=== PATIENT | female | born 1955 | race Caucasian/White ===

== ENCOUNTER → 2024-01-29 | Outpatient (CLI) | payer MEDICARE, SELFPAY ==
[2024-01-29 12:25] LABS: Absolute Lymphocyte Count 1.56 X10^3/uL (0.83-4.51); Absolute Neutrophil Count 4.1 X10^3/uL (2.0-7.7); Basophil# 0.05 X10^3/uL; Basophil% 0.8 % (0-1); Hematocrit 40.1 % (37-47); Hemoglobin 13.6 g/dL (12.0-15.0); Lymphocyte # 1.56 X10^3/ul (0.83-4.51); Lymphocyte % 23.8 % (19-41); Mean Corp Hgb Conc 33.9 g/dL (32-36); Mean Corpuscular Hgb 32.6 pg (27.0-32.0); Mean Corpuscular Volume 96.2 fL (81-99); Mean Platelet Vol. 9.2 fl (6.2-12.0); Monocyte# 0.68 X10^3/uL; Monocyte% 10.4 % (0-10); NRBC Flagged by Analyzer 0 % (0-5); Neutrophil # 4.05 X10^3/uL (2.7-7.7); Neutrophil % 61.7 % (47-70); Platelet Count 337 K/mm3 (150-450); RBC Distribution Width SD 42.4 fl (35.1-43.9); Red Blood Count 4.17 M/mm3 (4.2-5.4); White Blood Count 6.6 K/mm3 (4.4-11.0)
[2024-01-29 13:12] LABS: Vitamin D,25 Hydroxy 20.7 ng/mL
[2024-01-30 02:03] LABS: ALB/GLOB Ratio 1.1 RATIO (0.9-2.4); AST(SGOT) 15 U/L (15-37); Alanine Aminotransfer ALT/SGPT 17 U/L (13-56); Albumin, Serum 4.1 g/dL (3.2-5.0); Alkaline Phosphatase 98 U/L (45-117); Anion Gap 10 (5-15); BUN 12 mg/dL (7-18); BUN/Creat Ratio 17.1 RATIO (10-20); Calcium,Total 9.6 mg/dL (8.5-10.1); Chloride 101 mmol/L (98-107); Cholesterol 302 mg/dL (200); EST Glomerular Filtration Rate 88 mL/min (>60); Est Glom Filt Rate - Afr Amer 106 mL/min (>60); Globulin 3.9 g/dL (2.2-4.2); Glucose 111 mg/dL (74-106); High Density Lipoprotein 90 mg/dL; Potassium 4.2 mmol/L (3.5-5.1); Sodium Level 136 mmol/L (136-145); Triglycerides 66 mg/dL; Very Low Density Lipoprotein 13 mg/dL (5-40)
== END | disposition home or self-care (01) ==
LOC: MFPLAB 10:50
PROVIDERS: PCP Family Medicine; Visit Provider Family Medicine
DX: Z00.00 Encounter for general adult medical examination without abnormal findings (principal); Z12.11 Encounter for screening for malignant neoplasm of colon; Z13.1 Encounter for screening for diabetes mellitus; Z78.0 Asymptomatic menopausal state; E78.5 Hyperlipidemia, unspecified
CPT/HCPCS: 36415; 80053; 80061; 82306; 85025

== ENCOUNTER → 2024-02-17 | Outpatient (CLI) | payer MEDICARE, OTHER, SELFPAY ==
--- NOTE | 2024-02-17 09:56 | BD_ITS ---
STUDY: DUAL ENERGY X-RAY ABSORPTIOMETRY / DXA REASON FOR EXAM: Female, 68 years old. 627.8Menopausal postmenopausal BONE DENSITY REASON FOR EXAM TECHNIQUE: Bone Mineral Density (BMD) measurements of lumbar spine and bilateral hips were obtained. COMPARISON: None. FINDINGS: Lumbar Spine (L1-L4): g/cm2 (0.874) / T-score (-1.6) / Z-score (0.5) Findings are suggestive of osteopenia with a moderate fracture risk. Left Femur Total: g/cm2 (0.844) / T-score (-0.8) / Z-score (0.7) Left Femoral Neck: g/cm2 (0.615) / T-score (-2.1) / Z-score (-0.3) Right Femur Total: g/cm2 (0.848) / T-score (-0.8) / Z-score (0.7) Right Femoral Neck: g/cm2 (0.623) / T-score (-2.0) / Z-score (-0.2) BD/Dexa Bone Density Study IMPRESSION: The patient is considered osteopenic as outlined below according to World Patrick Organization (WHO) criteria with a high fracture risk. Reference Information: The T-score is the number of standard deviations above or below the standard which is normal for young adults at their peak bone mineral density. The World Health Organization (WHO) interprets the T-scores as follows: Above -1 Normal bone density Between -1 and -2.5 Osteopenia Equal to / or below -2.5 Osteoporosis As a practical clinical guideline, osteopenia may be graded as follows: Mild -1 through -1.5 Moderate -1.6 through -2.0 Severe -2.1 through -2.4 The Z-score is the number of standard deviations above or below age-matched controls. A Z-score of less than -1.5 would be considered abnormal. References: 1. NIH Osteoporosis and Related Bone Diseases www osteo.org 2. International Society for Clinical Densitometry www iscd.org 3. National Osteoporosis Foundation www nof.org Electronically Signed: Philip Abdalla MD at 10:59 EDT ,
== END | disposition home or self-care (01) ==
LOC: OPBD 09:53
PROVIDERS: PCP Family Medicine; Referring Provider Family Medicine; Visit Provider Family Medicine
DX: Z78.0 Asymptomatic menopausal state (principal)
CPT/HCPCS: 77080

== ENCOUNTER → 2024-03-23 | Outpatient (CLI) | payer MEDICARE, OTHER, SELFPAY ==
--- NOTE | 2024-03-23 07:11 | MRI_ITS ---
STUDY: MRI LOWER EXTREMITY RIGHT TIBIA/FIBULA WITH AND WITHOUT CONTRAST REASON FOR EXAM: Female, 69 years old. Nodule of right saucedo. TECHNIQUE: Standardized fat and water weighted pulse sequences were obtained in all 3 orthogonal planes, post contrast administration. IV 15 mL Clariscan was administered for the contrast portion of the examination. COMPARISON: None. FINDINGS: A skin marker was placed along the anteromedial aspect of the right knee region at the site of clinical concern. Subjacent to the skin marker in the subdermal subcutaneous fat, there is a well-defined intermediate T1 and increased STIR signal nodular lesion measuring 0.8 cm AP, 1.1 cm transverse, and 1.0 cm craniocaudad. There is internal enhancement of the lesion following IV contrast administration. There is no surrounding soft tissue edema. Normal tibia and fibula, without a periosteal, cortical or cancellous marrow abnormality. Normal anterior, lateral, and posterior calf compartments, with normal muscles, crural fascia and intermuscular septa. MRI/Lower Ext No Joint W/WO Cont IMPRESSION: Nonspecific 0.8 x 1.1 x 1.0 cm enhancing nodular mass in the subdermal subcutaneous fat of the anteromedial aspect of the right knee. A developing soft tissue neoplasm/sarcoma cannot be excluded. Biopsy/excision would be required to establish the definitive histological diagnosis. Electronically Signed: Eric Cross MD at 15:03 EDT ,
[2024-03-23 07:53] LABS: CREATININE FINGERSTICK < 1.0 mg/dL (0.55-1.02); EGFR FINGERSTICK > 60.0000 mL/min (>60)
== END | disposition home or self-care (01) ==
PROVIDERS: PCP Family Medicine; Referring Provider Plastic Surgery; Visit Provider Plastic Surgery
DX: Z01.812 Encounter for preprocedural laboratory examination (principal); D48.19 Other specified neoplasm of uncertain behavior of connective and other soft tissue
CPT/HCPCS: 73720; A9575

== ENCOUNTER 2024-04-15 07:08 | Day surgery (SDC) | payer MEDICARE, SELFPAY ==
[2024-04-15] VITALS (7 sets, daily range): BP systolic 125–168; BP diastolic 49–78; PULSE 90–96; RESP 12–18; TEMP 36.5–36.9; O2SAT 97–100; BMI 30.8
--- NOTE | 2024-04-15 | IMM_PTH ---
PATIENT: CECILIA UMANA LOC: [facility] – [place] U#:[id number] AGE/SX: 69/F ROOM: RE04/15/[address]: Dr. 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 Localization is made via biotin free immunoperoxidase method. Appropriate controls are performed and reacted as expected. Results on target cell population are indicated in the following table: RESULTS: ANTIBODY / CLONE RESULT AE1-3 (AE1/AE3/PCK26) negative CK8 (66pmmuC07) negative Vimentin (V9) positive CD31 (NIDIA/70A) negative Factor VIII (R Ag) negative CD34 (QBEnd-10) negative Actin (1A4) positive Desmin (CE-R-11) positive Melan A (A103) negative S-100 (4C4.9) negative Ki-67 (30-9) positive, low, <1% These tests were developed and their performance characteristics determined by [facility]. They may not have been cleared or approved by the U.S. Food and Drug Administration. The FDA has determined that such clearance or approval is not necessary. The above immunohistochemical/dualISH markers are ordered and reviewed by the Pathologist. INTERPRETATION: Right lower leg lesion, excision: Leiomyoma. HENRRY/ 04/20/2024
--- NOTE | 2024-04-15 07:22 | PRE.ANES_ITS ---
ASA Classification* ASA Classification ASA Classification: 2 Assessment & Plan Anesthesia* Anesthesia Assessment Anesthesia Assessment: Discussed sedation and/or anesthesia options, risks, benefits, and alternatives with patient/parents/legal guardian/POA. Questions invited. The patient/parents/legal guardian/POA seems to understand and agrees to proceed with anesthesia plan. Reviewed the physical assessment, medical history, allergy history and patient home medications list prior to surgery/procedure/anesthetic and documented any changes. Performed airway and anesthesia risk assessments. Anesthesia Type Anesthesia Type: General Anesthesia Focused Assessment* Airway Assessment Mouth opens: >3 cm Mallampati Score: II Focused Labs Anesthesia Preop lab: CBC WBC 6.6 K/mm3 (4.4-11.0) 01/29/24 10:51 RBC 4.17 M/mm3 (4.2-5.4) L 01/29/24 10:51 Hgb 13.6 g/dL (12.0-15.0) 01/29/24 10:51 Hct 40.1 % (37-47) 01/29/24 10:51 Plt Count 337 K/mm3 (150-450) 01/29/24 10:51 CHEMISTRY Potassium 4.2 mmol/L (3.5-5.1) 01/29/24 10:51 Sodium 136 mmol/L (136-145) 01/29/24 10:51 BUN 12 mg/dL (7-18) 01/29/24 10:51 Creatinine 0.70 mg/dL (0.55-1.02) 01/29/24 10:51 Glucose 111 mg/dL (74-106) H 01/29/24 10:51 COAG Pre-Assessment Diagnosis/Proposed Procedure Planned Operative Procedure(s): EXCISION LESION RIGHT LOWER LEG INTERMEDIATE CLOSURE Anesthesia History 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 When Was Last Pacemaker Check QUESTION #4 FULL TEXT: You/Your Family Experience fever (hyperthermia) with Anesthesia Last Oral Intake Last Oral intake: Last Oral Intake NPO since Meds taken in AM with sips of water? Meds patient instructed to take am of surgery PONV PONV - floor press operator: PONV - floor press operator Female Yes 04/08/24 13:13 HX of Motion Sickness No 04/08/24 13:13 HX of N/V After Surgery No 04/08/24 13:13 Non-Smoker Yes 04/08/24 13:13 Duration of Surgery greater Yes 04/08/24 13:13 than 60 minutes Number of Risk Factors 3 04/08/24 13:13 PONV Score Moderate Risk 04/08/24 13:13 Height & Weight Height & Weight: Anesthesia: Height & Weight Height 5 ft 2 in 03/29/24 09:07 Respiratory Assessment Respiratory Assessment - floor press operator: Respiratory Tract Infection Hx - floor press operator Hx Respiratory Tract Infection No 04/08/24 13:13 STOP Sleep Apnea STOP Sleep Apnea - floor press operator: STOP Sleep Apnea - floor press operator Hx Hypertension No 04/08/24 13:13 Hx Sleep Apnea No 04/08/24 13:13 CPAP BIPAP Do you snore loudly (louder Yes 04/08/24 13:13 than talking or can be heard Do you often feel tired/ No 04/08/24 13:13 fatigued/ sleepy during daytime? Has anyone observed you stop No 04/08/24 13:13 breathing during sleep? STOP Results Negative 04/08/24 13:13 QUESTION #5 FULL TEXT : Do you snore loudly (louder than talking or can be heard through closed doors)? 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 Specify any problems Hx of Preganancy in last 3 No 04/08/24 13:13 Months Nurse Filling Out Transfusion DSCHRIBER 04/08/24 13:13 & Questions: Date: 04/08/24 04/08/24 13:13 Time: 13:14 04/08/24 13:13 Patient unable to answer at this time (ie. confused, unrespo /Reproduction History /Reproductive History - floor press operator: /Reproductive Hx- floor press operator Hx Now No 04/08/24 13:13 Gestational Age (in weeks): EDC: Hx Hx Para Hx Section SAB No 04/08/24 13:13 Active Medications Active Medications: Current Medications Generic Name Dose Route Start Last Admin Trade Name Freq PRN Reason Stop Dose Admin Cefazolin Sodium 2 gm/ Sodium 110 mls @ 150 mls/hr 04/15/24 08:50 Chloride IV 04/15/24 09:33 PREOP ONE Lactated Ringer's 1,000 mls @ 15 mls/hr 04/15/24 07:30 IV .Q48H FAROOQ PFSH Medical History Wears glasses Post-menopausal Alcohol use High cholesterol Restless legs Non-smoker History of pain when walking History of osteopenia History of arthritis Home Medications ?Medication ?Instructions ?Recorded ?Last Taken ?Type calcium carbonate (Calcium 500) 400 mg PO DAILY 03/09/24 Unknown History cholecalciferol (vitamin D3) 1,250 1,250 mcg PO QWEEK 03/09/24 Unknown History mcg (50,000 unit) capsule Allergy/AdvReac Type Severity Reaction Status Date / Time atorvastatin (From Lipitor) Allergy Mild Rash Verified 04/08/24 13:11 rosuvastatin (From Crestor) Allergy Mild Rash Verified 04/08/24 13:11 Family History Brother Alcoholism Father Angina at rest Heart disease Hypertension High cholesterol Mother Breast cancer Osteoporosis Daughter Seizures Surgical History History of lumpectomy History of delivery Social History Smoking Status: Never smoker alcohol intake: current details: social substance use type: does not use additional social history: denies vaping, denies edibles, denies marijuana use, denies aspiring use Uses 400mg ibuprofen every 4 hours for pain from lipoma Review of Systems (Anesthesia) ROS Narrative System reviewed and no additional complaints, except as documented.
[2024-04-15] MEDS: Lactated Ringers 1,000 ML 15 ML IV (07:25)
--- NOTE | 2024-04-15 08:07 | PCM.HP.BLA ---
History and Physical Date of Admission: 04/15/24 The patient is examined and there are no changes to the H&P dated 04/07/2024. She presents for excision of a lesion of the right lower leg with submission for pathologic evaluation. Assessment & Plan Assessment/Plan (1) Neoplasm of uncertain behavior of connective and other soft tissue: PLAN: Plan For excision of the lesion of the right lower leg and submission for pathologic evaluation. She is aware the potential need for further surgery depending on the resulting pathology.
[2024-04-15] MEDS: Cefazolin 2 GM in 0.9% Normal Saline (100mL Bag) 100 ML IV (08:30)
--- NOTE | 2024-04-15 08:50 | LES_PTH ---
PATIENT: CECILIA UMANA LOC: [facility] – [place] U#:[id number] AGE/SX: 69/F ROOM: RE04/15/[address]: Dr. 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 See comment. / 04/19/2024 COMMENT Immunohistochemistry ([id number]) supports the above diagnosis. Case has been reviewed in consultation with Dr. Gore who concurs with the above diagnosis. IDC:AM MICROSCOPIC DESCRIPTION Slides are reviewed. GROSS DESCRIPTION Received in fixative is one container labeled with the patient's name and designated Connective tissue and neoplasm of right medial knee area. The specimen consists of a piece of hoff-white skin with underlying tissue measuring 1.9 x 0.9cm and up to 1.0cm in thickness. The specimen is inked and serially sectioned. Sections reveal a hoff solid nodule measuring 1.5 x 1.0 x 0.9cm. Also present in the container are three variable sized pieces of adipose tissue measuring in aggregate 1.5 x 1.0 x 0.5cm. The entire specimen is submitted in two cassettes as follows. Cassette 2 contains skin piece with underlying nodule. / 04/15/2024 TC:1 CPT:01721
[2024-04-15] MEDS: Lidocaine 1% /Epi 1:100 (20ml) 20 ML Vial (09:00)
--- NOTE | 2024-04-15 09:24 | DCINST_ITS ---
Discharge Instructions Dressing / Incision Additional Dressing/Incision Instructions:: Keep your leg elevated as much as possible to decrease swelling and bruising. Take the oral antibiotic (Keflex) 2 times a day until finished. May remove the Omar wrap to shower??leave the underlying dressing intact. Do not scrub over the dressing. Replace the Omar wrap to help reduce swelling. Follow Up Care Please Follow Up With: Macey Griffith MD When: In 1 to 2 weeks Test Results: Test results from this visit will be discussed in further detail at your follow- up appointment, if applicable. Discharge Plan Admission Attending Provider: Macey Griffith Primary Care Provider: Sung Marroquin Instructions Print Language: Bulgarian Discharge Orders/Prescriptions Prescriptions: New cephalexin 500 mg capsule 500 mg PO BID 7 Days Qty: 14 0RF No Action calcium carbonate [Calcium 500] 500 mg calcium (1,250 mg) tablet,chewable 400 mg PO DAILY cholecalciferol (vitamin D3) 1,250 mcg (50,000 unit) capsule 1,250 mcg PO QWEEK Referrals / Follow Up: Sung aMrroquin MD [Primary Care Provider] - Disposition Disposition (needs filled in before D/C Order can be placed): Home, Self Care
--- NOTE | 2024-04-15 09:27 | OP.PCM_ITS ---
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 She presents for excision of the mass with submission for pathologic evaluation. She is aware of the potential need for further surgery depending on the pathology. The patient is brought to the operating room and placed under general anesthesia in the supine position. The right leg is frog-legged and the medial knee area is prepped and draped in the usual sterile fashion. The surrounding area is injected with 1% Xylocaine with epinephrine. An elliptical incision is made over top of the mass and carried down through the subcutaneous tissue until the the solid mass is encountered. It is carefully enucleated from its bed. Hemostasis is controlled with cautery. The wound is then closed in layers using a Monocryl suture in the subcutaneous tissue and dermis. Skin edges are approximated with a running subcuticular Monocryl suture. Further reinforcement the closure is done with interrupted Prolene suture. Dermabond and Steri-Strips as well as a Tegaderm are placed on the site. In order to provide further support of the area, 3 inch Omar is also wrapped around the leg at the site. She tolerated the procedure well was taken the recovery area in an awake and stable condition. Needle and sponge counts are correct. Complications None Admit VTE Documentation VTE Mechan Device Prophylaxis: None Reason prophylaxis not ordered:: Treatment Not Indicated
--- NOTE | 2024-04-15 09:30 | PCM.POST.ANE ---
Anesthesia: Postop Eval I Current Vital Signs Temperature: 98.4 F Pulse Rate: 96 Blood Pressure: 125/49 Respiratory Rate: 16 Pulse Ox: 100 Oxygen Delivery Method: Room Air Assessment Airway patent: Yes Spontaneous unlabored respirations: Yes Mental status: Awake and Calm nausea: No Vomiting: No Anesthesia Complication: No Fluid Hydration Crystalloid volume administer (ml): 1,000 Total IV fluid infused: 1,000 Progress Note Anesthesia document: Postop Eval 1 completed: Yes
--- NOTE | 2024-04-15 12:51 | POSTOPAN2_ITS ---
Anesthesia Postop Eval I Sum Postop Eval Completion status Anesthesia document: Postop Eval 1 completed: Yes Anesthesia Postop Eval I Summary Anesthesia Postop Eval I Summary: Anesthesia Postop Eval I: Assessment Summary Airway patent Yes 04/15/24 09:30 EIGHT SECTION BLOWER.SKOBY Spontaneous unlabored Yes 04/15/24 09:30 EIGHT SECTION BLOWER.LORI respirations Mental status Awake,Calm 04/15/24 09:30 EIGHT SECTION BLOWER.SKOBY nausea No 04/15/24 09:30 EIGHT SECTION BLOWER.SKOBY Vomiting No 04/15/24 09:30 EIGHT SECTION BLOWER.ASHUTOSHOBAnat Anesthesia Postop Eval I: Fluid Summary Crystalloid volume administer 1,000 04/15/24 09:30 EIGHT SECTION BLOWER.SKOBY (ml) Colloids volume administered ( ml) Blood Product volume administered (ml) Total IV fluid infused 1,000 04/15/24 09:30 EIGHT SECTION BLOWER.ASHUTOSHOBAnat Anesthesia Postop Eval I: Summary Notes Anesthesia Complication No 04/15/24 09:30 EIGHT SECTION BLOWER.LORI Anesthesia Complication Comment: Post-operative progress note Anesthesia: Postop Eval II Evaluation Mental status: Awake and Calm Pain Level: 1 nausea: No Vomiting: No Complications Anesthesia Complication: No
--- NOTE | 2024-04-15 12:51 | PCM.POSTANE2 ---
Anesthesia Postop Eval I Sum Postop Eval Completion status Anesthesia document: Postop Eval 1 completed: Yes Anesthesia Postop Eval I Summary Anesthesia Postop Eval I Summary: Anesthesia Postop Eval I: Assessment Summary Airway patent Yes 04/15/24 09:30 WASTEWATER ANALYST.SKOBY Spontaneous unlabored Yes 04/15/24 09:30 WASTEWATER ANALYST.LORI respirations Mental status Awake,Calm 04/15/24 09:30 WASTEWATER ANALYST.SKOBY nausea No 04/15/24 09:30 WASTEWATER ANALYST.SKOBY Vomiting No 04/15/24 09:30 WASTEWATER ANALYST.ASHUTOSHOBAnat Anesthesia Postop Eval I: Fluid Summary Crystalloid volume administer 1,000 04/15/24 09:30 WASTEWATER ANALYST.SKOBY (ml) Colloids volume administered ( ml) Blood Product volume administered (ml) Total IV fluid infused 1,000 04/15/24 09:30 WASTEWATER ANALYST.ASHUTOSHOBAnat Anesthesia Postop Eval I: Summary Notes Anesthesia Complication No 04/15/24 09:30 WASTEWATER ANALYST.LORI Anesthesia Complication Comment: Post-operative progress note Anesthesia: Postop Eval II Evaluation Mental status: Awake and Calm Pain Level: 1 nausea: No Vomiting: No Complications Anesthesia Complication: No
== END 2024-04-15 10:24 | disposition home or self-care (01) ==
LOC: SDC 07:09 → AC 07:11
PROVIDERS: PCP Family Medicine; Referring Provider Plastic Surgery; Visit Provider Plastic Surgery
PROC: (CPT 27337; principal; 2024-04-15 08:40)
DX: D21.21 Benign neoplasm of connective and other soft tissue of right lower limb, including hip (principal); E78.00 Pure hypercholesterolemia, unspecified
CPT/HCPCS: 27337; 00400; 88305; 88311; 88341; 88342; J7120; J2405

== ENCOUNTER → 2024-12-26 | Outpatient (CLI) | payer MEDICARE, SELFPAY ==
--- NOTE | 2024-12-26 12:26 | BI_ITS ---
EXAM: SCRN MAMM (CAD)W/SHIREEN BILAT DATE: 12/26/2024 CLINICAL HISTORY: F, Age 69 y/o , SCREENING Patient's mother was diagnosed with breast cancer at the age of 65. BREAST CANCER RISK ASSESSMENT: Has not been calculated. TECHNIQUE: Bilateral screening digital breast tomosynthesis with 2D and 3D images. Computer aided detection. COMPARISON: None. This is her baseline mammogram. FINDINGS: TISSUE DENSITY: The breast tissue is composed of scattered area of fibroglandular density. Bilateral Breast Mammographic Findings: A 6 mm masslike density in the superior far posterior aspect of the right breast is noted. This does not appear to have a definitive fatty hilum. Further workup is indicated. Benign vascular calcifications and round microcalcifications are seen in the breast. A 3 mm well-circumscribed, isodense mass is seen in the superior outer aspect of the left. This does not appear to have a definitive fatty hilum. Further workup is indicated. Benign vascular calcifications and round calcifications are seen in the breast. BI/SCRN MAMM (CAD)W/SHIREEN BILAT IMPRESSION: OVERALL FINAL ASSESSMENT: BIRADS 0 Incomplete: Need additional imaging evaluati on and/or prior mammograms for comparison. RECOMMENDATION: Incomplete: Need additional imaging evaluation and/or prior mammograms for comp arison. Patient should return for LM views of the right and left breasts as well as a spot compression MLO view of the right [address] masslike density and spot compression CC and spot compression MLO views of the left breast mass. An ultrasound will also mo st likely be needed. A letter with findings and recommendations will be mailed to the patient. Reading Location: [id number]
== END | disposition home or self-care (01) ==
LOC: OPBI 12:24
PROVIDERS: PCP Family Medicine; Referring Provider Nurse Practitioner Family; Visit Provider Nurse Practitioner Family
DX: Z12.31 Encounter for screening mammogram for malignant neoplasm of breast (principal); Z80.3 Family history of malignant neoplasm of breast
CPT/HCPCS: 77063; 77067

== ENCOUNTER → 2025-01-05 | Outpatient (CLI) | payer MEDICARE, SELFPAY ==
--- NOTE | 2025-01-05 09:26 | US_ITS ---
PROCEDURE: BREAST LIMITED UNILATERAL 01/05/2025 REASON FOR EXAM: ABN MAMM TECHNIQUE: Targeted left breast ultrasound. COMPARISON: Prior mammogram done earlier in the day. FINDINGS: Left breast ultrasound was targeted to the upper-outer quadrant of the left breast.. There is a 5 mm x 3 mm x 2 mm hypoechoic nodule at the 2 o'clock position of the breast at 8 cm from the nipple. The margins are indistinct. Increased vascularity is seen. Biopsy recommended. US/Breast Limited Unilateral IMPRESSION: Impression: Suspicious nodule measuring 5 mm x 3 mm x 2 mm at the 2 o'clock pos ition of the breast at 8 cm from the nipple. Biopsy recommended. Birads: Category 4. Reading Location: [place] [id number]
--- NOTE | 2025-01-05 09:26 | US_ITS ---
PROCEDURE: BREAST LIMITED UNILATERAL 01/05/2025 REASON FOR EXAM: ABN MAMM TECHNIQUE: Targeted right breast ultrasound. COMPARISON: Prior mammogram done earlier in the day. FINDINGS: Right breast ultrasound was targeted to the upper-outer quadrant of the breast.. There is a 1.2 cm x 0.6 cm x 0.4 cm hypoechoic nodule at the 10 o'clock position of the breast at 8 cm from the nipple. A fatty hilum is seen within it. This is in keeping with a benign-appearing lymph node. US/Breast Limited Unilateral IMPRESSION: Impression: Suspicious nodule measuring 5 mm x 3 mm x 2 mm at the 2 o'clock pos ition of the breast at 8 cm from the nipple. Biopsy recommended. Birads: Category 4. Reading Location: [place] [address]
--- NOTE | 2025-01-05 09:26 | BI_ITS ---
EXAM: DIAG MAMM W/CAD, BILAT 01/05/2025 CLINICAL HISTORY: F, Age 69 y/o , ABN MAMM TECHNIQUE: Compression spot views of both breasts were obtained. Computer aided detection. COMPARISON: Prior exam(s) dated December 26, 2024.. FINDINGS: TISSUE DENSITY: The breast tissue is composed of scattered area of fibroglandular density. Bilateral Breast Mammographic Findings: Persistent subcentimeter nodules seen in the upper-outer aspect of both breasts. Targeted sonographic correlation recommended. BI/DIAG MAMM W/CAD, BILAT IMPRESSION: OVERALL FINAL ASSESSMENT: BIRADS 0 Incomplete: Need additional imaging evaluati on and/or prior mammograms for comparison.. RECOMMENDATION: Targeted bilateral sonographic correlation recommended. A letter with findings and recommendations will be mailed to the patient. Reading Location: [place] [address]
== END | disposition home or self-care (01) ==
LOC: OPBI 09:24
PROVIDERS: PCP Family Medicine; Referring Provider Nurse Practitioner Family; Visit Provider Nurse Practitioner Family
DX: R92.8 Other abnormal and inconclusive findings on diagnostic imaging of breast (principal); N63.11 Unspecified lump in the right breast, upper outer quadrant; N63.12 Unspecified lump in the right breast, upper inner quadrant
CPT/HCPCS: 76642; 77066

== ENCOUNTER → 2025-01-19 | Outpatient (CLI) | payer MEDICARE, SELFPAY ==
--- NOTE | 2025-01-19 08:58 | US_ITS ---
PROCEDURE: US BREAST BIOPSY 1ST LESION 01/19/2025 REASON FOR EXAM: F, Age 69 y/o , LEFT BREAST MASS Targeted biopsy of the nodule at the 2 o'clock position of the breast at 8 cm from the nipple. COMPARISON: Prior exam(s) dating back to . TECHNIQUE: Under direct sonographic guidance, the surgeon performed core biopsies of the 5 mm x 4 mm x 2 mm nodule at the 2 o'clock position of the breast at 8 cm from the nipple. FINDINGS: Successful targeted ultrasound-guided breast biopsy of the nodule at the 2 o'clock position of the breast at 8 cm from the nipple. US/US Breast Biopsy 1st Lesion IMPRESSION: Successful targeted ultrasound-guided breast biopsy of the nodule at the 2 o'cl ock position of the breast at 8 cm from the nipple. BI-RADS 4: SUSPICIOUS ABNORMALITY. Reading Location: [place] [address]
--- NOTE | 2025-01-19 09:46 | BRBX_PTH ---
PATIENT: CECILIA UMANA LOC: [facility] U#:[id number] AGE/SX: 69/F ROOM: RE01/19/[address]: Dr. Fahad Calero MD : [id number] BED: DIS: 01/19/2025 SPEC #: [id number] RECD: 01/19/25 10:37 STATUS: SHANON MCCOLLUM #: [id number] HANNAH: 01/19/25 09:[address]: Fahad Calero DEPT: SURGICAL PATHOLOGY RECD BY: Jose Carlos Randall ENTERED: 01/19/25 11:04 SP TYPE: BREAST BX OTHR DR: Sung Marroquin MD Tissues: A - Left breast, NOS Procedures: Surgery Specimen Level IV HEADER OPERATION: Ultrasound guided breast biopsy PRE-OP DIAGNOSIS: Left breast lesion - 4 passes TISSUE SUBMITTED: A- Left breast biopsy Ischemic Time: 1 minute Fixation Time: 9 hours MICROSCOPIC DIAGNOSIS A. Left breast, biopsy: * Benign fibroadipose tissue with portions of benign lymph shante tissue and clotted blood * No breast parenchyma is identified MICROSCOPIC DESCRIPTION Slides are reviewed. GROSS DESCRIPTION A. Received in formalin in a container labeled with the patient's name, date of , and LT breast biopsy 4 passes are multiple hoff-yellow fragments of fibrofatty tissue admixed with blood measuring 2.4 x 1.4 x 0.3 cm in aggregate. Submitted in toto in A1-2. [facility] 01-19-2025 CPT:52508
--- NOTE | 2025-01-19 10:00 | BI_ITS ---
EXAM: DIAG MAMM W/CAD, UNILAT 01/19/2025 CLINICAL HISTORY: F, Age 69 y/o , ABN MAMM TECHNIQUE: Mediolateral oblique and craniocaudad projections of the left breast were obtained following ultrasound directed biopsy. COMPARISON: Prior exam(s) dated . FINDINGS: A tissue clip marker is seen in the upper lateral aspect of the left breast. BI/DIAG MAMM W/CAD, UNILAT IMPRESSION: OVERALL FINAL ASSESSMENT: BIRADS 1 NEGATIVE. RECOMMENDATION: Routine annual follow-up in 1 Year A letter with findings and recommendations will be mailed to the patient. Reading Location: [place] [address]
--- NOTE | 2025-01-19 10:00 | PCM.OPRPT ---
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 Very small abnormality was noted in the left breast. I could not reliably reproduce the finding on my office ultrasound. And so he recommended mammotome biopsy and radiology. Patient presents today for this procedure. She was placed supine on the procedure room table after obtaining informed consent. The area was then prepped and draped in the usual manner. The lesion was identified. The area was injected with local anesthetic. A small skin incision was made to accommodate the mammotome biopsy device. This was inserted under ultrasound guidance. We are able to place this just deep to the lesion. At that point 4 suction biopsies were obtained with good tissue sampling. It was noted that hematoma did begin to form. A marking clip was deployed in the adjacent tissue outside of the hematoma. The biopsy device and marking clip device were removed. Manual pressure was held for several minutes. It was noted that hematoma was present near the biopsy site. Steri-Strips and OpSite were applied as dressing. When patient stood up to go to mammography for post procedure mammogram it was noted that this hematoma was larger. We placed a large Omar wrap around the chest for compression. We recommended close follow-up and nursing staff will schedule appointment for her to be seen in my office early next week. She was certainly counseled to contact my office sooner if this hematoma continues to become larger. I stated that she should anticipate quite a bit of bruising and swelling after this. Will await pathology results Surgical Findings: See procedure note Complications Complications: Yes Complication Details: Postprocedural hematoma
== END | disposition home or self-care (01) ==
PROVIDERS: PCP Family Medicine; Referring Provider Surgery; Visit Provider Surgery
DX: N63.21 Unspecified lump in the left breast, upper outer quadrant (principal); R92.8 Other abnormal and inconclusive findings on diagnostic imaging of breast; L76.32 Postprocedural hematoma of skin and subcutaneous tissue following other procedure; Y84.8 Other medical procedures as the cause of abnormal reaction of the patient, or of later complication, without mention of misadventure at the time of the procedure
CPT/HCPCS: 19083; 77065; 88305

== ENCOUNTER → 2025-02-21 | Outpatient (CLI) | payer MEDICARE, SELFPAY ==
[2025-02-21 09:53] LABS: Hematocrit 39.6 % (37-47); Hemoglobin 13.5 g/dL (12.0-15.0); Immature Granulocytes Count 0.030 X10^3/uL (0.0-0.0); Mean Corp Hgb Conc 34.1 g/dL (32-36); Mean Corpuscular Volume 97.1 fL (81-99); Mean Platelet Vol. 9.1 fl (6.2-12.0); NRBC Flagged by Analyzer 0 % (0-5); Platelet Count 260 K/mm3 (150-450); RBC Distribution Width CV 12.7 % (11.6-14.6); RBC Distribution Width SD 44.9 fl (35.1-43.9); Red Blood Count 4.08 M/mm3 (4.2-5.4); White Blood Count 7.2 K/mm3 (4.4-11.0)
[2025-02-21 12:56] LABS: AST(SGOT) 24 U/L (<=31); Alanine Aminotransfer ALT/SGPT 17 U/L (<=34); Albumin, Serum 4.5 g/dL (3.4-4.8); Alkaline Phosphatase 121 U/L (35-104); Anion Gap 16 (5-15); BUN 9 mg/dL (4-19); BUN/Creat Ratio 12.8 RATIO (10-20); Calcium,Total 9.7 mg/dL (7.6-11.0); Carbon Dioxide 23.2 mmol/L (21.0-32.0); Chloride 95 mmol/L (98-108); Cholesterol 233 mg/dL (<=200); Globulin 3.2 g/dL (2.2-4.2); Glucose 90 mg/dL (70-99); Low Density Lipoprotein Calc. 112 mg/dL; Potassium 4.1 mmol/L (3.3-5.1); Triglycerides 61 mg/dL; Very Low Density Lipoprotein 12 mg/dL (5-40); Vitamin D,25 Hydroxy 73.6 ng/mL (30-100); cholesterol:hdl ratio screen 2.14
== END | disposition home or self-care (01) ==
LOC: MFPLAB 09:03
PROVIDERS: PCP Family Medicine; Referring Provider Family Medicine; Visit Provider Family Medicine
DX: Z12.11 Encounter for screening for malignant neoplasm of colon (principal); D17.9 Benign lipomatous neoplasm, unspecified; E78.5 Hyperlipidemia, unspecified; E55.9 Vitamin D deficiency, unspecified; S20.02XS Contusion of left breast, sequela
CPT/HCPCS: 36415; 80053; 80061; 82306; 85025